=== PATIENT | female | born 1965 | race Caucasian/White ===

== ENCOUNTER 2017-01-09 12:58 | Emergency (ER) | payer MEDICARE | END 2017-01-09 17:00 | disposition home or self-care (01) | LOC: ER 12:58 | DX: R51 Headache (principal); R03.0 Elevated blood-pressure reading, without diagnosis of hypertension; F41.0 Panic disorder [episodic paroxysmal anxiety]; Z79.899 Other long term (current) drug therapy; Z88.8 Allergy status to other drugs, medicaments and biological substances | CPT/HCPCS: 36415; 96361; 96374; 96375; J0780; J1200; J1885 ==